=== PATIENT | female | born 1990 | race Caucasian/White ===

== ENCOUNTER 2019-11-22 07:31 | Inpatient (IN) ==
--- OUTSIDE RECORDS SUMMARY | 2019-11-22 07:34 | External Medical Summary | Continuity of Care Document ---
:1990 Author Name Franci Page, Provider Address Unavailable Unavailable , Care Team Providers Name Role Phone Unavailable Unavailable Unavailable Problems Common wart (078.19) (B07.8) Allergies and Adverse Reactions No Known Allergies (Allergy) Medications Ortho Tri-Cyclen (28) Camilo PASCUAL Refills: 0 Procedures Procedures not documented Immunizations Polio On: 1988 0:00 DTaP On: 1988 0:00 Polio On: 1988 0:00 DTaP On: 1988 0:00 DTaP On: 1988 0:00 MMR On: 07-Sep-1989 0:00 Polio On: 30-Nov-1989 0:00 DTaP On: 30-Nov-1989 0:00 HIB On: 30-Nov-1989 0:00 Varicella Not Administered Hepatitis B On: 03-Jul-1992 0:00 Hepatitis B On: 27-Aug-1992 0:00 Hepatitis B On: 02-Feb-1993 0:00 Polio On: 10-May-1993 0:00 DTaP On: 10-May-1993 0:00 MMR On: 06-Jun-1997 0:00 Td On: 01-Dec-2000 0:00 Meningo (Menactra) On: 07-Apr-2005 0:00 Td On: 07-Apr-2006 0:00 Influenza On: 18-Oct-2007 0:00 Plan of Treatment Planned Observations Planned Goals not documented Results No Known Results Results not documented
[2019-11-22] MEDS ORDERED: OXYTOCIN 30 UNITS/500 ML BAG IV PRN ×2 (08:35→19:22)
[2019-11-22] MEDS ORDERED: LACTATED RINGER'S 1,000 ML IV PRN (08:35)
[2019-11-22 09:00] LABS: Hematocrit (blood only) 41.2 % (37-47); Hemoglobin 14.8 g/dL (12.0-16.0); Mean Corpuscular Hemoglobin 31.5 pg (25-34); Mean Corpuscular Volume 87.7 fL (80-100); Mean Platelet Volume 9.7 fL (7.4-10.4); Platelet Count 235 K/uL (130-400); RDW Coefficient of Variation 13.5 % (11.5-14.5); RDW Standard Deviation 43.4 fL (36.4-46.3); White Blood Count 9.66 K/uL (4.8-10.8)
--- NOTE | 2019-11-22 09:04 | History & Physical Report ---
Date of Service November 22, 2019 Assessment & Plan (1) IUFD at less than 20 weeks of gestation: 29 yo at 16 wks with IUFD, noted on last weeks 11/15 US VSS Afebrile No s/s of SAB Plan to admit, monitor, labs and vaginal Cytotec and cytogenetic studies All questions were answered History of Present Illness Primary Care Provider: Cinthia Thomas DO Patient is a 29 y at 16 wks who is scheduled for IOL for IUFD noted on last weeks US on 11/15 when no FHR noted She has no complaints NO ctxs/ pain/ cramping/ VB/ Spotting nor LOF She felt her cervix was open last week and called the office and recommended to come in and then US was performed as above She has a healthy 14 month old baby and she is accepting this She desires to have cytogenetic testing to be done She denies any medical problems/ surgeries/ smoking/ alcohol or Drug use She is on PNV and vitamin D NKDA Discussed induction process and possible need for assisted delivery of placenta or D&C Allergies Allergy/AdvReac Type Severity Reaction Status Date / Time pablo Allergy Swelling Verified 11/22/19 08:11 of Lip/Tongue/Throat peach Allergy Swelling Verified 11/22/19 08:11 of Lip/Tongue/Throat Home Medications Home Medications Medication Instructions Recorded Confirmed Type vit-iron fum-folic ac 1 tab PO DAILY 11/22/19 11/22/19 History [ Vitamin] Patient History Surgical History History of placement of ear tubes Social History Preferred Language: Bangladeshi Communication Ability: Effective Rn Teacher Required: No Beliefs That Will Affect Care: None marital status: Current Living Situation: Spouse Other Information That Helps Us Care for You: No Feels Safe at Home: Yes Smoking Status: Never smoker Hx Alcohol Use: No Hx Substance Use: No 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
[2019-11-22 09:18] LABS: Albumin Level 3.5 gm/dl (3.4-5.0); BUN Creatinine Ratio 11.3 (10-20); Calcium 9.2 mg/dl (8.5-10.1); Creatinine Clr Calc Pharmacy 106.7 ml/min; Est GFR (African American) 133.8; Est GFR (Non-African American) 115.5; Potassium 3.5 mmol/L (3.5-5.1)
[2019-11-22 09:28] LABS: Albumin Globulin Ratio 0.9 (0.9-2); Bilirubin,Total 0.4 mg/dl (0.2-1); Globulin 4.1 gm/dl (2.5-4.0); Partial Thromboplastin Time 26.5 Seconds (21.0-31.0); Prothrombin Time 10.1 Seconds (9.0-12.0); Thyroid Stimulating Hormone 1.41 uIu/ml (0.300-4.500); Total Protein 7.6 gm/dl (6.4-8.2)
[2019-11-22 09:29] LABS: Mean Corpuscular Hgb Conc 35.9 g/dL (32-36)
[2019-11-22] MEDS: miSOPROStoL 200 MCG TAB PV SCH ×3 (09:33→15:50)
--- NOTE | 2019-11-22 09:39 | Obstetrical Progress Note ---
Date of Service November 22, 2019 Subjective Bed side US: Single IUP, no FH, BPD: 13.5 wks, placenta anterior Cervix: closed, thick and firm 400 mcg of Cytotec was placed in posterior cervix Results & Data Vital Signs (Past 12 Hours) Vital Signs Temp Pulse Resp BP 11/22/19 07:30 36.6 C 72 20 132/71
[2019-11-22 10:03] LABS: Fibrinogen 344 mg/dl (184-400)
[2019-11-22] MEDS: BUTORPHANOL TARTRATE 1 MG/ML VIAL IV PRN ×2 (15:27→17:31)
--- NOTE | 2019-11-22 15:57 | Obstetrical Progress Note ---
Date of Service November 22, 2019 Subjective Patient is reevaluated She started to feel mild cramping and received Stadol No VB/ Spotting/ LOF 3rd dose of Cytotec tbs are placed in posterior fornix Discussed what to expect All questions were answered Results & Data Vital Signs (Past 12 Hours) Vital Signs Temp Pulse Resp BP 11/22/19 14:46 37.1 C 62 20 120/62 11/22/19 12:23 37.3 C 18 11/22/19 12:21 60 110/59 L 11/22/19 07:30 36.6 C 72 20 132/71
[2019-11-22] MEDS ORDERED: CEFAZOLIN 2000MG 2,000 MG/15 ML SYR IV ONE (17:45)
--- NOTE | 2019-11-22 17:55 | Obstetrical Progress Note ---
Date of Service November 22, 2019 Subjective Patient felt mild cramp and wanted to use BR She then passed the sac into hat POC examined, opened the sac, is was field with dark blood stained amniotic fluid Cord was long and had 2 areas where it was twisted many times with stricture on it, other areas of the cord was dilated. Fetus appeared to be normal, male ( small penis like structure), normal extremities, swollen neck and upper back Placenta was attached to the sac and it seemed to be irregular with missing cotyledons Bed side US was adame and saw uterine cavity was filled with heterogenous materia suspicious for retained placenta Patient was given IV Stadol and spekulum exam was done, small pieces of placenta at the os and more coming out, patient could not tolerate longer exam and wanted to close her legs Recommended removal of POC and placenta under anesthesia and she accepted Plan EUA, D&C under US guidance Anesthesia is aware IV Cefazolin ordered Results & Data Vital Signs (Past 12 Hours) Vital Signs Temp Pulse Resp BP 11/22/19 17:43 90 117/84 11/22/19 17:28 68 20 111/73 11/22/19 17:13 73 20 118/89 11/22/19 14:46 37.1 C 62 20 120/62 11/22/19 12:23 37.3 C 18 11/22/19 12:21 60 110/59 L 11/22/19 07:30 36.6 C 72 20 132/71
[2019-11-22] MEDS ORDERED: BUPIVACAINE 0.25% 30 ML VIAL ONE (18:48)
--- NOTE | 2019-11-22 18:57 | Anesthesiology Consultation ---
Date of Service November 22, 2019 Assessment & Plan ASA ASA2 Proposed Anesthesia Anesthesia Type: Spinal Risk / Benefits Reviewed With: PT / POA / Parent / Guardian, Accepts Plan and Informed Consent Obtained Additional Comments: pt a demise at 13 weeks. reained placenta will attempt removal with sab in room. if unsuccessful, will do general rsi and ett in or History Height/Weight Height: 5 ft 7 in Weight: 58.06 kg Allergies Allergy/AdvReac Type Severity Reaction Status Date / Time pablo Allergy Swelling Verified 11/22/19 08:11 of Lip/Tongue/Throat peach Allergy Swelling Verified 11/22/19 08:11 of Lip/Tongue/Throat Medications Home Medications Medication Instructions Recorded Confirmed Last Taken vit-iron fum-folic ac 1 tab PO DAILY 11/22/19 11/22/19 11/21/19 08:00 [ Vitamin] Active Medications Generic Name Dose Route Start Last Admin Trade Name Freq PRN Reason Stop Dose Admin Butorphanol Tartrate 1 mg 11/22/19 09:39 11/22/19 17:31 Stadol IV 12/22/19 09:38 1 mg Q2H PRN Administration Pain Lactated Ringer's 1,000 mls @ 125 mls/hr 11/22/19 08:35 11/22/19 15:25 Lr IV 11/24/19 08:34 125 mls/hr .Q8H PRN Administration L&D Protocol Protocol Misoprostol 400 mcg 11/22/19 08:45 11/22/19 15:50 Cytotec PV 12/22/19 08:44 400 mcg Q3H JULIO CESAR Administration Exercise / Class Metabolic Activity II 4-5 Yardwork/Stairs/Walk up hill Past Surgical History Surgical History History of placement of ear tubes Past Anesthesia History No Hx of Anesthesia Complications and No Family Hx of Anesthesia Complications History of PONV No Hx of PONV and No Hx of Motion Sickness Social History Smoking Status: Never smoker Hx Alcohol Use: No Hx Substance Use: No Review of Systems denies fever/cough/ colds/ chest pain/ SOB/ LUIS FERNANDO Constitutional: no fever and no chills Respiratory: no cough and no dyspnea denies LUIS FERNANDO Cardiovascular: no chest pain and no dyspnea on exertion Physical Exam Vital Signs Last Vital Signs Temp 37.1 C 11/22/19 14:46 Pulse 63 11/22/19 18:54 Resp 20 11/22/19 18:13 BP 104/56 L 11/22/19 18:54 Pulse Ox 97 11/22/19 18:50 ENMT Mouth: no TMJ abnormality and no dentition abnormality Thyromental Distance: > or= 3.5 Finger Breadths Mallampati Class: II Neck neck extension not limited Respiratory normal respiratory effort; no respiratory distress Auscultation: lungs clear to auscultation bilaterally Cardiovascular Rate/Rhythm: regular rate and regular rhythm Neurologic moves all extremities Psychiatric Orientation: alert and oriented x 3 Testing Laboratory Results 11/22/19 08:45 11/22/19 08:45 PT 10.1 Seconds (9.0-12.0) 11/22/19 08:45 INR 1.0 (0.9-1.1) 11/22/19 08:45 APTT 26.5 Seconds (21.0-31.0) 11/22/19 08:45 Blood Type O Positive 11/22/19 08:45 Antibody Screen NEGATIVE 11/22/19 08:45
[2019-11-22] MEDS ORDERED: METHYLERGONOVINE MALEATE 0.2 MG/ML AMP ONE (19:17)
[2019-11-22] MEDS ORDERED: IBUPROFEN 600 MG TAB PO PRN (19:22)
[2019-11-22] MEDS ORDERED: miSOPROStoL 200 MCG TAB PR ONE (19:22)
[2019-11-22] MEDS ORDERED: BENZOCAINE 20% AER SPR 82.5 GM CAN EXT PRN (19:22)
[2019-11-22] MEDS ORDERED: METHYLERGONOVINE MALEATE 0.2 MG/ML AMP IM ONE (19:22)
[2019-11-22] MEDS ORDERED: ACETAMINOPHEN 325 MG TAB PO PRN (19:22)
[2019-11-22] MEDS ORDERED: HYDROCORTISONE ACETATE 25 MG SUPP PR PRN (19:22)
[2019-11-22] MEDS ORDERED: DIPHTHERIA/TETANUS/PERTUSSIS 0.5 ML SYR/VIAL IM ONE (19:22)
[2019-11-22] MEDS ORDERED: MEASLES, MUMPS & RUBELLA VIRUS VIAL SQ ONE (19:22)
[2019-11-22] MEDS ORDERED: SUPERCREAM 0.870% 15 GM JAR EXT PRN (19:22)
[2019-11-22] MEDS ORDERED: bisacodyL 10 MG SUPP PR PRN (19:22)
--- NOTE | 2019-11-22 19:40 | Anesthesiology Progress Note ---
Date of Service November 22, 2019 Anesthesia Post Procedure Vital Signs Vital Signs: Temp Pulse Resp BP Pulse Ox 11/22/19 19:35 63 99 11/22/19 19:30 72 97 11/22/19 19:25 63 116/53 L 98 11/22/19 19:20 64 111/66 99 11/22/19 19:18 62 104/57 L 11/22/19 19:15 61 108/65 98 11/22/19 19:12 61 109/66 11/22/19 19:10 65 97 11/22/19 19:09 65 113/69 11/22/19 19:06 60 109/66 11/22/19 19:05 61 97 11/22/19 19:03 60 106/64 11/22/19 19:00 60 108/63 99 11/22/19 18:58 62 104/59 L 11/22/19 18:55 61 96 11/22/19 18:54 63 104/56 L 11/22/19 18:53 63 106/55 L 11/22/19 18:50 69 97 11/22/19 18:48 65 122/68 11/22/19 18:45 71 91 11/22/19 18:43 70 121/61 11/22/19 18:40 76 91 11/22/19 18:35 68 94 11/22/19 18:30 67 93 11/22/19 18:28 67 120/77 11/22/19 18:13 65 20 119/66 11/22/19 17:58 80 20 119/83 11/22/19 17:43 90 20 117/84 11/22/19 17:28 68 20 111/73 11/22/19 17:13 73 20 118/89 11/22/19 14:46 37.1 C 62 20 120/62 11/22/19 12:23 37.3 C 18 11/22/19 12:21 60 110/59 L 11/22/19 07:30 36.6 C 72 20 132/71 Pain Intensity Abdomen: Pain Intensity: 2 Transfer of Care Handoff Completed per policy Notes Mental Status: alert / awake / arousable and participated in evaluation Patient Amnestic to Procedure: Yes Nausea / Vomiting: adequately controlled Pain: adequately controlled Airway Patency, RR, SpO2: stable & adequate BP & HR: stable & adequate Hydration State: stable & adequate Anesthetic Complications: no major complications apparent and Pt Satisfied with anesthetic care
--- NOTE | 2019-11-22 20:18 | Obstetrical Progress Note ---
Date of Service November 22, 2019 Subjective Patient is reevaluated She feels well, no complaints No pain/ fever/ chills/ N&V She is hungry and wants to eat regular diet Discussed surgery and what to expect during recovery and after d/c All questions were answered Results & Data Vital Signs (Past 12 Hours) Vital Signs Temp Pulse Resp BP Pulse Ox 11/22/19 20:15 67 97 11/22/19 20:12 64 82 L 11/22/19 20:10 65 110/81 95 11/22/19 20:06 63 83 L 11/22/19 20:05 58 L 98 11/22/19 20:00 62 99 11/22/19 19:55 58 L 100 11/22/19 19:50 61 98 11/22/19 19:45 56 L 98 11/22/19 19:40 62 116/54 L 98 11/22/19 19:35 63 99 11/22/19 19:30 72 97 11/22/19 19:25 63 116/53 L 98 11/22/19 19:20 64 111/66 99 11/22/19 19:18 62 104/57 L 11/22/19 19:15 61 108/65 98 11/22/19 19:12 61 109/66 11/22/19 19:10 65 97 11/22/19 19:09 65 113/69 11/22/19 19:06 60 109/66 11/22/19 19:05 61 97 11/22/19 19:03 60 106/64 11/22/19 19:00 60 108/63 99 11/22/19 18:58 62 104/59 L 11/22/19 18:55 61 96 11/22/19 18:54 63 104/56 L 11/22/19 18:53 63 106/55 L 11/22/19 18:50 69 97 11/22/19 18:48 65 122/68 11/22/19 18:45 71 91 11/22/19 18:43 70 121/61 11/22/19 18:40 76 91 11/22/19 18:35 68 94 11/22/19 18:30 67 93 11/22/19 18:28 67 120/77 11/22/19 18:13 65 20 119/66 11/22/19 17:58 80 20 119/83 11/22/19 17:43 90 20 117/84 11/22/19 17:28 68 20 111/73 11/22/19 17:13 73 20 118/89 11/22/19 14:46 37.1 C 62 20 120/62 11/22/19 12:23 37.3 C 18 11/22/19 12:21 60 110/59 L
[2019-11-22] MEDS: DOCUSATE SODIUM 100 MG CAP PO SCH (21:18)
[2019-11-22] MEDS ORDERED: METHYLERGONOVINE MALEATE 0.2 MG TAB PO SCH (22:00)
--- NOTE | 2019-11-23 00:47 | Operative Report ---
DATE OF OPERATION: 11/22/2019 PREOPERATIVE DIAGNOSES: The patient is a 29-year-old G2, P1-0-0-1 at 16 weeks by dates, 15 weeks by ultrasound done on 11/15/2019, and 13.5 weeks by ultrasound done today, with diagnosis of intrauterine demise, missed , and delivered after induction with misoprostol and retained products of conception and placenta. POSTOPERATIVE DIAGNOSES: The patient is a 29-year-old G2, P1-0-0-1 at 16 weeks by dates, 15 weeks by ultrasound done on 11/15/2019, and 13.5 weeks by ultrasound done today, with diagnosis of intrauterine demise, missed , and delivered after induction with misoprostol and retained products of conception and placenta. PROCEDURE: Exam under anesthesia, removal of retained products of conception and placenta under ultrasound guidance, and D and C under ultrasound guidance. SURGEON: Flor Bird MD LABORER LABORATORY: OR nurses and surgical forceps fabricator. ESTIMATED BLOOD LOSS: 50 mL. ANESTHESIA: Spinal and Versed by Dr. Ham. COMPLICATIONS: None. FINDINGS: Before the procedure, endometrial lining was 3.2 cm with heterogeneous material suggesting retained products of conception and placenta and the uterus was enlarged about 14-week size, and after the procedure endometrial lining was thin and normal. Uterus was small at 10 weeks size and contracted. DESCRIPTION OF PROCEDURE: The patient was given spinal anesthesia and IV Versed by Dr. Ham and she was placed in dorsal lithotomy position, prepared and draped in usual sterile fashion. Ultrasound was done by rf technician before the procedure with above findings and a weighted speculum was placed in the patient's vagina. Cervix was visualized, grasped with single tooth tenaculum and gently brought to the lower vagina and the cervical os was already dilated. The polyp forceps was introduced into the uterine cavity under ultrasound guidance. Some pieces of placenta was removed without difficulty and then a small curette was introduced from cervix into the uterine cavity under ultrasound guidance and the rest of the retained products of conception and placenta were curetted producing moderate amount of tissue, about 50 gr/ piece of placenta, and retained products of conception under ultrasound guidance. The curette was repeated until ultrasound showed empty uterine cavity and a uterine cry sensation was felt in all quadrants of the uterus as well as fundus. At that point with no more pieces of placenta coming, the curette was bringing up small amount of bloody tissue. An ultrasound was repeated and confirmed to be empty uterus. No complications nor perforation happened during procedure. Instruments were removed. Single tooth tenaculum was removed and the cervix was hemostatic. At the end of the procedure, she had scant bleeding from the os. Uterus was massaged and found to be contracted and firm at about 10-week size and then IV oxytocin was started. She was given IM Methergine and rectal Cytotec and she tolerated the procedure well. Sponge, lap, needle, and instrument count was correct x2. No complications happened. I was present during whole procedure and she was given cefazolin before procedure. She was cleaned, dried, taken out from lithotomy position, and taken to her labor and delivery room. I attest to the content of the Intraoperative Record and any orders documented therein. Any exceptions are noted below. LYNN
[2019-11-23] MEDS: METHYLERGONOVINE MALEATE 0.2 MG TAB PO SCH ×2 (01:56→05:55)
[2019-11-23 07:21] LABS: Hematocrit (blood only) 38.2 % (37-47); Hemoglobin 13.6 g/dL (12.0-16.0); Mean Corpuscular Hemoglobin 31.4 pg (25-34); Mean Corpuscular Hgb Conc 35.6 g/dL (32-36); Mean Corpuscular Volume 88.2 fL (80-100); Mean Platelet Volume 9.6 fL (7.4-10.4); Platelet Count 204 K/uL (130-400); RDW Coefficient of Variation 13.5 % (11.5-14.5); RDW Standard Deviation 43.4 fL (36.4-46.3); Red Blood Count 4.33 M/uL (4.2-5.4); White Blood Count 9.86 K/uL (4.8-10.8)
[2019-11-23] MEDS: DOCUSATE SODIUM 100 MG CAP PO SCH (07:27)
[2019-11-23] MEDS ORDERED: FERROUS SULFATE 325 MG TAB PO SCH (08:00)
[2019-11-23] MEDS ORDERED: PRENATAL VITAMIN 1 TAB PO SCH (08:00)
--- NOTE | 2019-11-23 08:13 | Obstetrical Progress Note ---
Date of Service November 23, 2019 Subjective Patient is seen and examined. She feels well, no complaints. Likes to be discharged Ambulating without dizziness Voiding without difficulty Tolerating regular diet with out N&V Bleeding is minimal No fever/ chills/ CP/ SOB/ N&V/ Leg pain Vital Signs Temp Pulse Resp BP Pulse Ox 11/23/19 07:18 36.8 C 20 11/23/19 07:13 77 144/61 H 11/23/19 03:34 36.8 C 16 11/23/19 03:29 67 102/57 L 11/23/19 00:00 18 11/22/19 23:56 74 104/51 L 11/22/19 21:18 74 110/60 11/22/19 21:15 36.8 C 72 18 98 11/22/19 21:10 73 99 11/22/19 21:05 70 100 11/22/19 21:00 66 100 11/22/19 20:55 67 100 11/22/19 20:54 69 87 L 11/22/19 20:50 66 100 11/22/19 20:45 63 16 92 11/22/19 20:43 60 87 L 11/22/19 20:40 62 99 11/22/19 20:38 58 L 112/55 L 11/22/19 20:37 61 87 L 11/22/19 20:35 60 99 11/22/19 20:30 62 98 11/22/19 20:25 60 99 11/22/19 20:20 64 100 11/22/19 20:15 67 18 97 11/22/19 20:12 64 82 L 11/22/19 20:10 65 110/81 95 11/22/19 20:06 63 83 L 11/22/19 20:05 58 L 98 11/22/19 20:00 62 16 99 11/22/19 19:55 58 L 100 11/22/19 19:50 61 98 11/22/19 19:45 56 L 18 98 11/22/19 19:40 62 116/54 L 98 11/22/19 19:35 63 99 11/22/19 19:30 72 18 97 11/22/19 19:25 63 116/53 L 98 11/22/19 19:20 64 111/66 99 11/22/19 19:18 62 104/57 L 11/22/19 19:15 36.5 C 61 16 108/65 98 11/22/19 19:12 61 109/66 11/22/19 19:10 65 97 11/22/19 19:09 65 113/69 11/22/19 19:06 60 109/66 11/22/19 19:05 61 97 11/22/19 19:03 60 106/64 11/22/19 19:00 60 108/63 99 11/22/19 18:58 62 104/59 L 11/22/19 18:55 61 96 11/22/19 18:54 63 104/56 L 11/22/19 18:53 63 106/55 L 11/22/19 18:50 69 97 11/22/19 18:48 65 122/68 11/22/19 18:45 71 91 11/22/19 18:43 70 20 121/61 11/22/19 18:40 76 91 11/22/19 18:35 68 94 11/22/19 18:30 37 C 67 20 93 11/22/19 18:28 67 120/77 11/22/19 18:13 65 20 119/66 11/22/19 17:58 80 20 119/83 11/22/19 17:43 90 20 117/84 11/22/19 17:28 68 20 111/73 11/22/19 17:13 73 20 118/89 11/22/19 14:46 37.1 C 62 20 120/62 11/22/19 12:23 37.3 C 18 11/22/19 12:21 60 110/59 L Intake and Output 11/22/19 11/23/19 11/23/19 22:59 06:59 14:59 Intake Total 406.25 / 406.25 Output Total 1000 / 1000 Balance -593.75 / -593.75 Intake: IV 406.25 / 406.25 Lr 1,000 ml @ 125 mls/hr IV . 406.25 / 406.25 Q8H PRN Rx#:[id number] Output: Urine 1000 / 1000 Other: Weight 58.06 kg Lab Results 11/22/19 11/22/19 11/22/19 Range/Units 08:45 08:45 08:45 WBC 9.66 (4.8-10.8) K/uL RBC 4.70 (4.2-5.4) M/uL Hgb 14.8 (12.0-16.0) g/dL Hct 41.2 (37-47) % MCV 87.7 (80-100) fL MCH 31.5 (25-34) pg MCHC 35.9 (32-36) g/dL RDW Std Deviation 43.4 (36.4-46.3) fL RDW Coeff of Alyson 13.5 (11.5-14.5) % Plt Count 235 (130-400) K/uL MPV 9.7 (7.4-10.4) fL PT 10.1 (9.0-12.0) Seconds INR 1.0 (0.9-1.1) APTT 26.5 (21.0-31.0) Seconds PTT Ratio 1.0 Fibrinogen 344 (184-400) mg/dl Sodium (136-145) mmol/L Potassium (3.5-5.1) mmol/L Chloride (98-107) mmol/L Carbon Dioxide (21-32) mmol/L Anion Gap (3-11) BUN (7-18) mg/dl Creatinine (0.6-1.2) mg/dl Est Cr Clr Drug Dosing ml/min Est GFR ( Amer) Est GFR (Non-Af Amer) BUN/Creatinine Ratio (10-20) Glucose (70-99) mg/dl Calcium (8.5-10.1) mg/dl Total Bilirubin (0.2-1) mg/dl AST (15-37) U/L ALT (12-78) U/L Alkaline Phosphatase (45-117) U/L Total Protein (6.4-8.2) gm/dl Albumin (3.4-5.0) gm/dl Globulin (2.5-4.0) gm/dl Albumin/Globulin Ratio (0.9-2) TSH (0.300-4.500) uIu/ml Blood Type O Positive Antibody Screen NEGATIVE Mother's Rh Status Maternal Bleed ML KB Cells Counted /Adult RBC Ratio 11/22/19 11/22/19 11/23/19 Range/Units 08:45 09:06 07:09 WBC 9.86 (4.8-10.8) K/uL RBC 4.33 (4.2-5.4) M/uL Hgb 13.6 (12.0-16.0) g/dL Hct 38.2 (37-47) % MCV 88.2 (80-100) fL MCH 31.4 (25-34) pg MCHC 35.6 (32-36) g/dL RDW Std Deviation 43.4 (36.4-46.3) fL RDW Coeff of Alyson 13.5 (11.5-14.5) % Plt Count 204 (130-400) K/uL MPV 9.6 (7.4-10.4) fL PT (9.0-12.0) Seconds INR (0.9-1.1) APTT (21.0-31.0) Seconds PTT Ratio Fibrinogen (184-400) mg/dl Sodium 139 (136-145) mmol/L Potassium 3.5 (3.5-5.1) mmol/L Chloride 109 H (98-107) mmol/L Carbon Dioxide 24 (21-32) mmol/L Anion Gap 6.0 (3-11) BUN 8 (7-18) mg/dl Creatinine 0.70 (0.6-1.2) mg/dl Est Cr Clr Drug Dosing 106.7 ml/min Est GFR ( Amer) 133.8 Est GFR (Non-Af Amer) 115.5 BUN/Creatinine Ratio 11.3 (10-20) Glucose 67 L (70-99) mg/dl Calcium 9.2 (8.5-10.1) mg/dl Total Bilirubin 0.4 (0.2-1) mg/dl AST 13 L (15-37) U/L ALT 18 (12-78) U/L Alkaline Phosphatase 67 (45-117) U/L Total Protein 7.6 (6.4-8.2) gm/dl Albumin 3.5 (3.4-5.0) gm/dl Globulin 4.1 H (2.5-4.0) gm/dl Albumin/Globulin Ratio 0.9 (0.9-2) TSH 1.410 (0.300-4.500) uIu/ml Blood Type Antibody Screen Mother's Rh Status RH Pos Maternal Bleed 2 ML KB Cells Counted 2 /Adult RBC Ratio 0.07 PE: General: Alert, orientedx3, NAD Abd: soft, NT, fundus firm, Perineum intact, Lochia rubra minimal Ext; NT, no edema AP: 29 yo s/p IOL for IUFD, D&C for reatined POC, ppd# 1 VSS Afebrile doing well Continue routine care All questions were answered D/C home , F/U IN OFFICE Results & Data Vital Signs (Past 12 Hours) Vital Signs Temp Pulse Resp BP Pulse Ox 11/23/19 07:18 36.8 C 20 11/23/19 07:13 77 144/61 H 11/23/19 03:34 36.8 C 16 11/23/19 03:29 67 102/57 L 11/23/19 00:00 18 11/22/19 23:56 74 104/51 L 11/22/19 21:18 74 110/60 11/22/19 21:15 36.8 C 72 18 98 11/22/19 21:10 73 99 11/22/19 21:05 70 100 11/22/19 21:00 66 100 11/22/19 20:55 67 100 11/22/19 20:54 69 87 L 11/22/19 20:50 66 100 11/22/19 20:45 63 16 92 11/22/19 20:43 60 87 L 11/22/19 20:40 62 99 11/22/19 20:38 58 L 112/55 L 11/22/19 20:37 61 87 L 11/22/19 20:35 60 99 11/22/19 20:30 62 98 11/22/19 20:25 60 99 11/22/19 20:20 64 100 11/22/19 20:15 67 18 97 11/22/19 20:12 64 82 L 11/22/19 20:10 65 110/81 95
[2019-11-23] MEDS ORDERED: bisacodyL 5 MG TABEC PO SCH (20:00)
== END 2019-11-23 09:11 | disposition home or self-care (01) | DRG 807 ==
LOC: 4S1 07:31